=== PATIENT | male | born 1990 | race Native Hawaiian/Other Pacific Islander ===

== ENCOUNTER 2021-05-07 04:32 | Emergency (ER) | payer OTHER ==
[~2021-05-07] VITALS: Ht 188 cm; Wt 129.3 kg
[2021-05-07 04:37] VITALS: BP 159/103; TEMP 97.8
== END 2021-05-07 07:36 | disposition home or self-care (01) ==
LOC: ED 04:32
DX: M10.9 Gout, unspecified (principal)
CPT/HCPCS: 84550; 96372; 99283; J1885

== ENCOUNTER 2021-06-30 21:55 | Emergency (ER) | payer OTHER ==
[~2021-06-30] VITALS: Ht 188 cm; Wt 131.5 kg
[2021-06-30 22:53] LABS: PLATELET COUNT 208 K/uL (142-355)
[2021-06-30 23:09] LABS: POTASSIUM 4.2 mmol/L (3.6-5.2)
[2021-06-30 23:58] VITALS: BP 157/97; TEMP 98.2
== END 2021-06-30 23:58 | disposition home or self-care (01) ==
LOC: ED 21:55
PROVIDERS: Emergency Medicine Emergency Medical Services
DX: I10 Essential (primary) hypertension (principal)
CPT/HCPCS: 36415; 80048; 85027; 96360; 99284

== ENCOUNTER 2021-07-15 10:07 | Outpatient (CLI) | payer OTHER ==
[2021-07-15 10:39] LABS: PLATELET COUNT 193 K/uL (142-355)
[2021-07-15 11:02] LABS: POTASSIUM 4.2 mmol/L (3.6-5.2)
== END 2021-07-15 19:42 | disposition home or self-care (01) ==
LOC: LABW 10:07
PROVIDERS: ATTEND Internal Medicine
DX: I10 Essential (primary) hypertension (principal); M10.9 Gout, unspecified; Z79.899 Other long term (current) drug therapy; R53.83 Other fatigue; R53.81 Other malaise
CPT/HCPCS: 36415; 80053; 80061; 82306; 82607; 83036; 84402; 84403; 84439; 84443; 85027

== ENCOUNTER 2021-08-04 09:08 | Outpatient (CLI) | payer OTHER | END 2021-08-04 18:55 | disposition home or self-care (01) | LOC: US 09:08 | PROVIDERS: ATTEND Nurse Practitioner Family | DX: R74.8 Abnormal levels of other serum enzymes (principal) ==

== ENCOUNTER 2021-11-24 14:15 | Outpatient (CLI) | payer OTHER ==
[2021-11-24 14:30] LABS: PLATELET COUNT 179 K/uL (142-355)
[2021-11-24 14:52] LABS: POTASSIUM 4.6 mmol/L (3.6-5.2)
== END 2021-11-24 18:56 | disposition home or self-care (01) ==
LOC: LAB 14:15
PROVIDERS: ATTEND Nurse Practitioner Family
DX: M10.9 Gout, unspecified (principal); I10 Essential (primary) hypertension; E78.49 Other hyperlipidemia; E55.9 Vitamin D deficiency, unspecified; R53.81 Other malaise; R53.83 Other fatigue; R74.8 Abnormal levels of other serum enzymes; Z79.899 Other long term (current) drug therapy
CPT/HCPCS: 80053; 80061; 83036; 84439; 84443; 85027

== ENCOUNTER 2022-06-05 11:17 | Day surgery (SDC) | payer OTHER ==
[2022-06-04 07:56] LABS: PLATELET COUNT 168 K/uL (142-355)
[2022-06-04 08:10] LABS: POTASSIUM 4.5 mmol/L (3.6-5.2)
[~2022-06-05] VITALS: Ht 188 cm; Wt 131.5 kg
== END 2022-06-05 13:15 | disposition home or self-care (01) ==
LOC: OR 11:17
PROVIDERS: ATTEND Surgery
PROC: 0JB90ZZ Excision of Buttock Subcutaneous Tissue and Fascia, Open Approach (ICD-10-PCS; principal; 2022-06-05)
DX: L72.0 Epidermal cyst (principal)
CPT/HCPCS: 36415; 80048; 85027; J0690; J2001; J2250; J2704; J3010; J7120